=== PATIENT | female | born 1985 | race African-American/Black ===

== ENCOUNTER 2017-07-19 13:16 | Observation (INO) | payer OTHER | END 2017-07-19 15:30 | disposition home or self-care (01) | LOC: 3 SO LND 13:16 | PROVIDERS: ADMIT Specialist; ATTEND Specialist | DX: Z34.93 Encounter for supervision of normal pregnancy, unspecified, third trimester (principal); Z3A.39 39 weeks gestation of pregnancy | CPT/HCPCS: G0378; G0379 ==